=== PATIENT | female | born 1940 | race Caucasian/White ===

== ENCOUNTER → 2017-02-05 | Outpatient (CLI) | payer BC ==
[~2017-02-05] MED LIST: ACYCLOVIR30 GM TOP; CYCLOBENZAPRINE5 MG PO; FOLIC ACID1 MG PO; HYDROCODONE-A1 UDTA4 PO; LIDOCARE1 EACH; MICROZIDE12.5 M1 PO; NEURONTIN100 MG PO; OMEPRAZOLE40 M1 PO; PREDNISONE5 M1 PO; TYLENOL XS PO; VALACYCLOVIR1000 MG PO; ZOMIG2.5 MG PO
--- NOTE | ~2017-02-05 | NM8 ---
[facility] A Service of [facility] & [facility] RADIOLOGY TEXT RESULTS PATIENT: LORELEI CHIANG LOCATION: [facility] : 42 UNIT #: [id number] AGE: [address]: Faisal Naqvi MD SEX: F ORDER DR: [id number] [facility] [address] [place], [place] [address] [id number] O MR#: [id number] #: [id number] NAME: LORELEI CHIANG : 1940 SEX: F STUDY DATE/TIME: 02/05/2017 12:36 UNIT: [facility] ROOM: STUDY DESCRIPTION: IA Bone or Joint Whole Body Attending Physician: Faisal Naqvi M.D. Referring Physician: Faisal Naqvi M.D. Ordering Physician: Faisal Naqvi M.D. Primary Care Physician: Naga Chiang M.D. MEDICAL IMAGING REPORT This report is preliminary unless electronic signature is present EXAM Whole-body bone scan 02/05/2017 HISTORY Left lower posterior rib pain, symptoms present for 4-5 weeks. History of rheumatoid arthritis, osteoarthritis, scoliosis, right tibia and fibula fracture greater than 20 years ago. No history of cancer. COMPARISON Right shoulder radiographs 11/22/2016. CT lumbar spine without contrast 08/21/2016. PA and lateral chest radiographs 11/24/2015. FINDINGS Following the administration of 28.6 mCi technetium 99m MDP within the left and coronal fossa vein, delayed anterior posterior planar images and bilateral oblique chest images were obtained. FINDINGS There is severe thoracic scoliosis toward the right, upper lumbar scoliosis to the left. There is intense radiopharmaceutical uptake within the lower thoracic spine, thought to correspond to the T11 vertebral body. Compression deformity at that location cannot be excluded. There is advanced endplate sclerosis at that location on CT lumbar spine from 08/21/2016. There is intense, more focal uptake within the [id number] thoracic spine on the left at T10 and T9 levels, which could indicate underlying facet arthropathy. There is focal intense uptake within a right lower rib near the costochondral junction, which may represent the right eighth rib. Fracture at that location cannot be excluded. Uptake is seen in the knees bilaterally centered around the patella, and the medial tibial metaphysis, bilateral ankles, left greater than right, first metatarsal-phalangeal STS. [facility] A Service of [facility] RADIOLOGY TEXT RESULTS PATIENT: LORELEI CHIANG LOCATION: [facility] : 42 UNIT #: [id number] AGE: [address]: Faisal Naqvi MD SEX: F ORDER DR: joints, radial aspects of both wrists, and within both shoulders, sternoclavicular joints, thought to be on the basis of degenerative change. IMPRESSION 1. Fairly intense radiopharmaceutical uptake is demonstrated within the region of the T11 vertebral body. Compression fracture cannot be excluded. Consider dedicated CT thoracic spine for further evaluation. More focal uptake is demonstrated to left of midline within the T10 and T8 vertebral region, may represent facet arthropathy. This, too, could be further evaluated CT thoracic spine. 2. Degenerative appearing changes within the shoulders, wrists, knees and ankles and feet as described. 3. Focal intense uptake within the right lower rib anteriorly near the costochondral junction, potentially representing the eighth rib. Fracture at that location cannot be excluded. Consider right rib detail series for additional evaluation. Dictated by... Tila Yao M.D. THIS IS AN ELECTRONICALLY VERIFIED REPORT Tila Yao M.D. at 02/08/2017 8:31 AM JIMI/shantell TD: 02/05/2017 19:40 JOB #: [id number] MEDICAL IMAGING REPORT Page 1 of 1 COPY
== END | disposition home or self-care (01) ==
LOC: CNUC 09:15
DX: R07.81 Pleurodynia (principal)
CPT/HCPCS: 78306; A9503

== ENCOUNTER → 2017-02-19 | Outpatient (CLI) | payer BC ==
--- NOTE | ~2017-02-19 | BD1 ---
[facility] A Service of [facility] & [facility] RADIOLOGY TEXT RESULTS PATIENT: LORELEI CHIANG LOCATION: [facility] : 41 UNIT #: [id number] AGE: [address]: Faisal Naqvi MD SEX: F ORDER DR: [id number] [facility] [address] [place], [place] [address] [id number] O MR#: [id number] Acc #: [id number] NAME: LORELEI CHIANG : 1940 SEX: F STUDY DATE/TIME: 02/19/2017 10:26 UNIT: [facility] ROOM: STUDY DESCRIPTION: BD Dexa Bone Dens 1+ Site Attending Physician: Faisal Naqvi M.D. Referring Physician: Faisal Naqvi M.D. Ordering Physician: Physician Non-Staff Primary Care Physician: Naga Chiang M.D. MEDICAL IMAGING REPORT This report is preliminary unless electronic signature is present EXAM Bone density spine hip HISTORY Lower thoracic fracture. Postmenopausal. Arthritis. Prior smoker, not current. FINDINGS Bone density scanning performed upper 4 lumbar vertebral segments and proximal left femur in 145-pound female, 76 years old. No comparisons. L1-L4: Total bone mineral density 0.617 g/cm2 for T-score 3.7 standard deviation below mean for reference population normal young individuals and Z-score 1.5 standard deviations below mean for age-match population. Proximal left femur total bone mineral density 0.617 g/cm2 for T-score 2.7 standard deviations below mean for reference population normal young individuals and Z-score 0.8 standard deviations below the mean for age-match population. Left femoral neck bone mineral density 0.503 g/cm2 for T-score 3.1 standard deviation below the mean for reference population normal young individuals and Z-score 1.0 standard deviations below the mean for age-match population. IMPRESSION 1. Osteoporosis in the upper 4 lumbar vertebral segments overall. Patient felt to be at significantly increased risk for fracture. Treatment options may be considered. Continued surveillance is recommended. 2. Incidental note is made of osteoporosis in the proximal left femur as well, inclusive of the femoral neck. [facility]. [facility] A Service of [facility] & [facility] RADIOLOGY TEXT RESULTS PATIENT: LORELEI CHIANG LOCATION: [facility] : 41 UNIT #: [id number] AGE: [address]: Faisal Naqvi MD SEX: F ORDER DR: Dictated by... Jerardo Fisher M.D. THIS IS AN ELECTRONICALLY VERIFIED REPORT Jerardo Fisher M.D. at 02/22/2017 8:26 AM ALESSANDRA/rony TD: 02/19/2017 22:18 JOB #: [id number] MEDICAL IMAGING REPORT Page 1 of 1 COPY
== END | disposition home or self-care (01) ==
LOC: CWCC 09:40
DX: Z13.820 Encounter for screening for osteoporosis (principal); M81.0 Age-related osteoporosis without current pathological fracture
CPT/HCPCS: 77080